=== PATIENT | male | born 1990 | race Caucasian/White ===

== ENCOUNTER 2019-02-21 12:47 | Emergency (ER) | payer BC ==
[2019-02-21] MEDS ORDERED: Acetaminophen/HYDROcodone 325-5 MG Tab PO ONE (13:07)
[2019-02-21] MEDS ORDERED: Penicillin V Potassium 500 MG Tab PO ONE (13:07)
--- NOTE | 2019-02-21 13:14 | EDM.PDOC ---
ED HPI GENERAL MEDICAL PROBLEM - General Chief Complaint: ENT Problem Stated Complaint: TOOTH PAIN Time Seen by Provider: 02/21/19 13:00 Source of Information: Reports: Patient History Limitations: Reports: No Limitations - History of Present Illness INITIAL COMMENTS - FREE TEXT/NARRATIVE: Patient is a 28-year-old male presents ED complaining of pain to 2 teeth the left lower palate that have poor dentition. He states yesterday while eating a donut a portion of the tooth broke off. Since then he's experiencing worsening pain to the affected teeth with exposure to hot, cold, and also air. He has a history of multiple fillings to the affected teeth. The molars affected are #17 and 18. He has been using ibuprofen with no relief. States that laying flat he gets E throbbing sensation. Has minimize chewing on the affected side with no significant relief noted. Denies any fever, difficultly swallowing, pain to his neck, facial swelling, gumline swelling, protrusion of his tongue, and/or any additional complaints. Treatments [employer]PER[employer]OR: Reports: Acetaminophen Right Lower Jaw Pain Score (Numeric/FACES): 6 - Related Data Allergies Allergy/AdvReac Type Severity Reaction Status Date / Time No Known Allergies Allergy Verified 02/21/19 12:58 Home Meds: Home Meds Acetaminophen/HYDROcodone [Chatom 325-5 MG] 1 tab PO Q6H PRN #5 tablet 02/21/19 [ Rx] Penicillin V Potassium [Veetids] 500 mg PO Q6H #28 tab 02/21/19 [Rx] Past Medical History - Past Health History Medical/Surgical History: Denies Medical/Surgical History Other Dermatologic History: cyst removed on left cheek Social & Family History - Family History Family Medical History: Noncontributory - Tobacco Use Smoking Status *Q: Never Smoker Second Hand Smoke Exposure: No - Caffeine Use Caffeine Use: Reports: None - Recreational Drug Use Recreational Drug Use: No ED ROS ENT - Review of Systems Review Of Systems: ROS reveals no pertinent complaints other than HPI. ED EXAM, ENT - Physical Exam Exam: See Below Exam Limited By: No Limitations General Appearance: Alert, WD/WN, No Apparent Distress, Other (No facial swelling noted.) Eye Exam: Bilateral Eye: Normal Inspection Ears: Normal External Exam, Hearing Grossly Normal Nose: Normal Inspection Mouth/Throat: Normal Inspection, Normal Gums, Normal Lips, Dental Tenderness (# 17 and 18 tooth. Portions of both teeth are broken off. No gumline swelling. No drainage present.). No: Normal Teeth, Muffled Voice, Pharyngeal Erythema, Throat Pain, Throat Swelling, Tongue Swelling, Tonsillar Erythema, Tonsillar Exudates, Tonsillar Swelling, Trismus, Uvular Deviation Head: Atraumatic, Normocephalic Neck: Normal Inspection, Supple Respiratory/Chest: No Respiratory Distress, No Accessory Muscle Use Cardiovascular: Normal Peripheral Pulses, Regular Rate, Rhythm Neurological: Alert, Oriented, CN II-XII Intact, Normal Cognition, Normal Gait, No Motor/Sensory Deficits Psychiatric: Normal Affect, Normal Mood Skin: Warm, Dry, Intact, Normal Color Course - Vital Signs Last Recorded V/S: Last Vital Signs Temp 98.7 F 02/21/19 12:54 Pulse 74 02/21/19 12:54 Resp 13 02/21/19 12:54 BP 142/80 H 02/21/19 12:54 Pulse Ox 99 02/21/19 12:54 - Orders/Labs/Meds Meds: Medications Discontinued Medications Generic Name Dose Route Start Last Admin Trade Name Balajiq PRN Reason Stop Dose Admin Hydrocodone Bitart/Acetaminophen 1 tab 02/21/19 13:07 02/21/19 13:11 Chatom 325-5 Mg PO 02/21/19 13:08 1 tab ONETIME ONE Administration Penicillin V Potassium 500 mg 02/21/19 13:07 02/21/19 13:11 Veetids PO 02/21/19 13:08 500 mg ONETIME ONE Administration Departure - Departure Time of Disposition: 13:08 Disposition: Home, Self-Care 01 Condition: Good Clinical Impression: Pain, dental - Discharge Information Prescriptions: Acetaminophen/HYDROcodone [Chatom 325-5 MG] 1 tab PO Q6H PRN #5 tablet PRN Reason: Pain (Severe 7-10) Penicillin V Potassium [Veetids] 500 mg PO Q6H #28 tab Instructions: Benzocaine mouth gel, ointment, solution, or dental paste Referrals: PCP,None [Primary Care Provider] - Forms: ED Department Discharge Additional Instructions: Take the full course of pen vk as prescribed. Utilize ibuprofen 600mg q6hrs for pain. May use tylenol 1gram three times a day for pain as well. Suggest using a temporary filling to the affected teeth to minimize the exposure to heat , cold, and also air which may cause worsening discomfort. Do not chew on the affected side. Use oral gel and/or clove oil for pain. Call and make an appt with dentist/oral surgeon of your choice to be evaluated this week for definitive therapy. Return to the E.D. for any new or worsening symptoms. Only take the norco for severe pain as directed. Do not drive today and/or while taking the norco.
== END 2019-02-21 13:28 | disposition home or self-care (01) ==
LOC: JD.ED 12:47
DX: K03.81 Cracked tooth (principal)
CPT/HCPCS: 99282; A9270; 99283